=== PATIENT | female | born 1980 | race Two or more races ===

== ENCOUNTER 2018-01-15 22:12 | Emergency (ER) | payer OTHER | END 2018-01-16 00:30 | disposition home or self-care (01) | LOC: ER 01-16 00:30 | DX: S93.402A Sprain of unspecified ligament of left ankle, initial encounter (principal); V49.40XA Driver injured in collision with unspecified motor vehicles in traffic accident, initial encounter; Y93.89 Activity, other specified; Y99.8 Other external cause status; Y92.488 Other paved roadways as the place of occurrence of the external cause | CPT/HCPCS: 73610; 99284 ==